=== PATIENT | male | born 2005 | race Hispanic/Latino ===

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

== ENCOUNTER 2024-01-20 11:23 | Emergency (ER) | payer OTHER, SELFPAY ==
--- NOTE | ~2024-01-20 | CT_ITS ---
EXAMINATION: CT brain wo con DATE: 01/20/2024 12:03 INDICATION: Fall. Bruising and swelling at right eyebrow TECHNIQUE: Computed tomography (CT) of the head was performed without intravenous contrast. The mA wa s adjusted according to patient size. Iterative reconstruction technique was employed. Exam dose: 60 5.33 mGy-cm total exam DLP. COMPARISON: 09/28/2021 CT brain FINDINGS: No intracranial mass lesion or hemorrhage, midline shift or mass effect effect. Normal vent ricular size. Normal estrada-white matter differentiation. No subdural or epidural hematoma. Right frontal cephalohematoma, right periorbital hematoma. No skull fracture. No coup or contrecoup i ntracranial injury is noted. Mastoid air cells and included paranasal sinuses are unremarkable. IMPRESSION: Right frontal cephalohematoma, right periorbital hematoma No skull fracture or acute intracranial finding Reviewed, dictated and finalized at Location [facility]. Reviewed, dictated and finalized at location A. ER FILLER
--- NOTE | ~2024-01-20 | XR_ITS ---
XR chest 1V DATE: 01/20/2024 12:01 INDICATION: Seizure TECHNIQUE: AP chest COMPARISON: 07/18/2021 portable AP chest FINDINGS: Normal heart size. No hilar or mediastinal enlargement. No pulmonary infiltrate or consolid ation, pleural effusion or pulmonary vascular congestion or pneumothorax. IMPRESSION: Negative Reviewed, dictated and finalized at location A. TRAINING INSTRUCTOR IMPRESSION: Negative
--- NOTE | ~2024-01-20 | CT_ITS ---
EXAMINATION: CT facial & cervical spine wo DATE: 01/20/2024 12:03 INDICATION: Fall. Right frontal and periorbital swelling TECHNIQUE: Computed tomography (CT) of the facial bones and maxillofacial region and cervical spine w as performed without intravenous contrast. Automated exposure control and iterative reconstruction te chnique were employed. Exam dose: 366.54 mGy-cm total exam DLP. COMPARISON: None. FINDINGS: Mild to moderate right frontal cephalohematoma mild superior right periorbital hematoma. No underlying skull fracture. Orbital rims and ortiz, nasal bones, zygomatic arches, maxillary bones and pterygoid plates are intact. Normal temporomandibular alignment bilaterally. No mandibular fractu re. 1.8 cm polyp or mucous retention cyst in the anteroinferior left maxillary antrum; the paranasal sinu ses and included mastoid air cells are otherwise unremarkable. C1 and C2 are normally aligned and the odontoid process is intact. No fracture or dislocation or lock ed facet or prevertebral soft tissue swelling is detected. Cervical interspaces are preserved. IMPRESSION: Right frontal cephalhematoma and mild superior right periorbital hematoma No facial fracture or cervical spine fracture Reviewed, dictated and finalized at Location A. Reviewed, dictated and finalized at location A. UP TECHNICIAN IMPRESSION: Right frontal cephalhematoma and mild superior right periorbital h ematoma No facial fracture or cervical spine fracture
[2024-01-20 11:27] VITALS: BP 117/72; PULSE 75; RESP 17; TEMP 36.4; O2SAT 98
--- NOTE | 2024-01-20 11:32 | ED.SEIZURE ---
HPI - Seizure General Chief Complaint: Seizure Stated Complaint: seizure Time Seen by Provider: 01/20/24 11:32 Source: patient and family Mode of arrival: ambulatory Limitations: no limitations History of Present Illness HPI Narrative: 18 years old white male came to the emergency room by private car after having a seizure-like activity at home witnessed by his brother. During the seizure patient hit his head on the bathroom sink. Currently patient is awake, alert and oriented x4. Patient used to be on Keppra for 3 years, stopped taking it for 1 year. Been having intermittent seizure since. Last 1 was 3 weeks ago. Did not go seek medical attention at that time, came to the emergency room today because of the right forehead hematoma. Patient is healthy otherwise, does not smoke or drink but uses marijuana daily. Seizure History: Yes Related Data Home Medications Medication Instructions Recorded Confirmed levetiracetam 1,000 mg tablet PO 07/18/21 Allergies Allergy/AdvReac Type Severity Reaction Status Date / Time No Known Allergies Allergy Verified 01/20/24 12:12 Review of Systems Review of Systems: All systems reviewed & are unremarkable except as noted in HPI and below PMFSH Past Medical History Medical History Seizure Social History Social History Smoking status: Never smoker Alcohol intake: never Substance use: never Exam Narrative: General appearance: Well-developed, well-nourished Skin: Normal color Head: Normocephalic, nontraumatic Eyes: Clear conjunctiva ENT: Oropharynx normal, ears normal, nose normal, right forehead hematoma, right tongue bite darnell Neck: Supple, nontender Chest and respiratory: Airway patent, no respiratory distress, no accessory muscle use Heart: Regular rate/rhythm Abdomen: Soft, nontender, no organomegaly, quiet bowel sounds Vascular: Normal peripheral pulses, normal capillary refill. Musculoskeletal: Normal range of motion, nontender back Neurologic: Alert and oriented ?3, CERTIFIED BREASTFEEDING EDUCATOR is normal as tested, no gross motor deficit Course Vital Signs Vital signs: Vital Signs Temperature 36.4 C L 01/20/24 11:27 Pulse Rate 75 01/20/24 11:27 Respiratory Rate 17 01/20/24 11:27 Blood Pressure 117/72 03/09/24 11:27 Pulse Oximetry 98 01/20/24 11:27 Oxygen Delivery Room Air 01/20/24 11:27 Temperature 36.4 C L 01/20/24 11:27 Pulse Rate 71 01/20/24 12:10 Respiratory Rate 19 01/20/24 12:10 Blood Pressure 128/73 01/20/24 12:10 Pulse Oximetry 99 01/20/24 12:10 Oxygen Delivery Room Air 01/20/24 11:37 MDM - Seizure MDM Narrative Medical decision making narrative: Patient came to the emergency room by private car with recurrent seizure. Patient stop taking his Keppra, on his own 1 year ago. Does not remember the dose. Been having intermittent seizure for last 12 months, last 1 was 3 weeks ago. Came to the emergency room today because of right forehead hematoma, his mom got worried about the hematoma. Differential diagnosis include recurrent seizure, electrolyte imbalance, noncompliance with medication, close head injury. Workup today showed no acute abnormality, urine drug screen came back positive for marijuana in CT head, facial bones, and cervical spine showed no acute abnormalities, chest x-ray showed no acute abnormalities. In the ED patient received 1 g of Keppra IV, My plan to discharge on Keppra 500 b.i.d., follow-up with Dr. Figueroa, and to not drive motor vehicle for 6 months until evaluation by neurologist. Differential Diagnosis Differ
[2024-01-20 11:37] VITALS: PULSE 76; O2SAT 99
[2024-01-20] MEDS: levETIRAcetam 1000MG/NACL100ML 1,000 MG/100 ML BAG 400 MG IVPB (12:08)
[2024-01-20 12:10] VITALS: BP 128/73; PULSE 71; RESP 19; O2SAT 99
[2024-01-20 12:14] LABS: Basophils Percent Auto 0.4 % (0.2-1.2); Eosinophils Percent Auto 0.4 % (0-4.4); Hematocrit 46.3 % (42.0-52.0); Hemoglobin 15.7 g/dL (14.0-18.0); Immature Granulocyte Absolute 0.25 K/mm3 (0.00-0.031); Immature Granulocyte Percent A 2.4 % (0-0.5); Lymphocytes Absolute Auto 0.72 K/mm3 (0.9-3.2); Lymphocytes Percent Auto 6.9 % (18.3-44.2); Mean Corpuscular HGB Conc 33.9 g/dl (32-36); Mean Corpuscular Hemoglobin 28.8 pg (26-34); Mean Platelet Volume 10.1 fl (7.4-10.4); Monocytes Absolute Auto 0.3 K/mm3 (0.1-0.6); Monocytes Percent Auto 2.8 % (2.6-8.5); Neutrophils Absolute Auto 9.1 K/mm3 (1.3-6.7); Neutrophils Percent Auto 87.1 % (45.5-73.1); Platelet Count Result 276 k/mm3 (150-375); Red Blood Count 5.45 M/mm3 (4.6-6.20); Red Cell Distribution Width 13.2 % (11.5-14.5); White Blood Count 10.4 K/mm3 (4.5-10.0)
[2024-01-20 12:20] LABS: Appearance Urine Clear (Clear); Bacteria Urine None Seen /hpf; Bilirubin Urine Negative (Negative); Blood Urine 1+ (Negative); Color Urine Yellow (Yellow); Glucose Urine UA Negative (Negative); Ketones Urine Trace mg/dL (Negative); Leukocyte Esterase Ur Negative LEU/UL (Negative); Nitrate Urine Negative (Negative); Non Pathogenic Casts 0-2; Protein Urine 2+ mg/dL (Negative); RBC Urine 0-2 /hpf (0-2); Specific Grav Ur 1.016 (1.001-1.035); Squamous Epithelial Cell Urine None seen /hpf (Few); Urobilinogen Urine 0.2 mg/dL (<2.0); WBC Urine 0-5 /hpf
[2024-01-20 12:22] LABS: Add Urine Microscopic? YES
[2024-01-20 12:22] LABS: Ethanol < 10 mg/dL (<10)
[2024-01-20 12:23] LABS: Anion Gap 9 mmol/L (8-16); Blood Urea Nitrogen 11 mg/dL (9-20); Calcium 9.7 mg/dL (8.4-10.2); Carbon Dioxide 26 mmol/L (22-30); Chloride 105 mmol/L (98-107); Creatine Kinase 256 U/L (55-170); Estimated CRCL calculation 153 ml/min; Estimated Glomerular Filt Rate > 60; Glucose 102 mg/dL (65-110); Potassium 4.3 mmol/L (3.4-5.0); Sodium 140 mmol/L (137-145)
[2024-01-20 12:29] LABS: Amphetamine Screen Urine Negative (Negative); Barbiturate Screen Urine Negative (Negative); Benzodiazepines Screen Urine Negative (Negative); Cannabinoid Screen Urine Positive (Negative); Cocaine Screen Urine Negative (Negative); Methadone Screen Urine Negative (Negative); Opiate Screen Urine Negative (Negative); Phencyclidine Screen Urine Negative (Negative)
[2024-01-20 13:34] VITALS: BP 108/61; PULSE 63; RESP 18; TEMP 36.3; O2SAT 99
== END 2024-01-20 13:26 | disposition home or self-care (01) ==
PROVIDERS: Emergency Provider Emergency Medicine; PCP Registered Nurse
DX: G40.909 Epilepsy, unspecified, not intractable, without status epilepticus (principal)
CPT/HCPCS: 36415; 70450; 70486; 71045; 72125; 80048; 80307; 81001; 82550; 85025; 96374; 99284; J1953

== ENCOUNTER 2025-04-01 12:20 | Emergency (ER) | payer SELFPAY ==
[2025-04-01] VITALS (7 sets, daily range): BP systolic 107–140; BP diastolic 47–84; PULSE 67–90; RESP 16–20; TEMP 36.4; O2SAT 94–99
--- NOTE | ~2025-04-01 | XR_ITS ---
EXAMINATION: XR chest 2V 04/01/2025 13:10 INDICATION: Seizure PROCEDURE: 2 view chest COMPARISON: 01/20/2024 FINDINGS: The lungs are clear. The cardiomediastinal silhouette is within normal limits. There are no pleural effusions. There is no pneumothorax suspected. IMPRESSION: 1: NO ACUTE CARDIOPULMONARY DISEASE. Reviewed, dictated and finalized at location B.
--- NOTE | 2025-04-01 12:34 | ECG_ITS ---
Test Date: 2025-04-01 12:39:39 Measurements Intervals [place] Rate: 77 P: 38 [place]: 156 QRS: 40 QRSD: 93 T: 38 QT: 317 QTc: 360 Interpretive Statements SINUS RHYTHM EARLY REPOLARIZATION [ST ELEVATION WITH NORMALLY INFLECTED T-WAVE] No previous ECG available for comparison Electronically Signed On 04-01-2025 13:44:52 CDT by Evi Aponte M.D.
[2025-04-01 12:53] LABS: Basophils Percent Auto 0.4 % (0.2-1.2); Eosinophils Absolute Auto 0.1 K/mm3 (0-0.3); Eosinophils Percent Auto 0.8 % (0-4.4); Hemoglobin 15.6 g/dL (14.0-18.0); Immature Granulocyte Absolute 0.22 K/mm3 (0.00-0.031); Immature Granulocyte Percent A 2.1 % (0-0.5); Lymphocytes Absolute Auto 0.67 K/mm3 (0.9-3.2); Lymphocytes Percent Auto 6.3 % (18.3-44.2); Mean Corpuscular HGB Conc 33.9 g/dl (32-36); Mean Corpuscular Volume 85.5 fl (80-100); Mean Platelet Volume 10.4 fl (7.4-10.4); Monocytes Absolute Auto 0.4 K/mm3 (0.1-0.6); Monocytes Percent Auto 4.1 % (2.6-8.5); Neutrophils Absolute Auto 9.2 K/mm3 (1.3-6.7); Neutrophils Percent Auto 86.3 % (45.5-73.1); Platelet Count Result 251 k/mm3 (150-375); Red Blood Count 5.38 M/mm3 (4.6-6.20); Red Cell Distribution Width 13.2 % (11.5-14.5); White Blood Count 10.6 K/mm3 (4.5-10.0)
[2025-04-01 13:02] LABS: Alanine Aminotransferase 31 U/L (6-50); Albumin Level 4.7 g/dL (3.5-5.1); Alkaline Phosphatase 88 U/L (38-126); Anion Gap 10 mmol/L (4-12); Aspartate Amino Transferase 34 U/L (17-59); Bilirubin,Total 0.3 mg/dL (0.2-1.3); Blood Urea Nitrogen 8 mg/dL (9-20); Calcium 9.3 mg/dL (8.4-10.2); Carbon Dioxide 24 mmol/L (22-30); Chloride 107 mmol/L (98-107); Estimated CRCL calculation 200 ml/min; Estimated Glomerular Filt Rate > 60; Glucose 94 mg/dL (65-110); Lactic Acid Reflex 3.3 mmol/L (0.7-2.0); Potassium 4.6 mmol/L (3.4-5.0); Sodium 141 mmol/L (137-145)
[2025-04-01 14:49] LABS: Reflex Lactic Acid Yes or No Add Lactic
--- OUTSIDE RECORDS SUMMARY | 2025-04-01 15:03 | XMS_ITS | Clinical Summary ---
Author Organization [facility] Address [address] [place] [address] Care Team Providers Care Private Duty Lpn Name Role Phone Lindsey Singh INVESTMENT ASSOCIATE-EXECUTIVE VICE PRESIDENT Primary Care Pro vider Source Comments [facility],non-owned Affiliates and Associated Physician Practices is amultiple site organization consisting of ambulatory clinics and hospital sitesin [place], [place], [place] and [place]. This disclosure is being madepursuant to the Care Everywhere program and may not contain all information available regarding this patient. Last updated 18.[facility] Allergies No known active allergies Medications * Be aware that medications may not be up to date on this document. Alwaysverify current medications with the patient. levETIRAcetam (Keppra) 1000 MG tablet Take 1 tablet by mouth twice daily 60 tablet 07/08/2022 Active Active Problems Problem Noted Date Diagnosed Date Idiopathic generalized epilepsy 01/22/2019 Overview (10/21/2021): Age of onset:13 yr Seizure type(s): Generalized tonic-clonic Current seizure frequency: 4 seizure in total- 2 before meds and a few since started medication when he has possibly missed dosages. He has an odd feeling before (forgetfulness) followed by TC seizure. Duration 2-3 min Epilepsy syndrome: Etiology: EEG Information: abnormal Neuroimaging: CT head normal. Family has declined to obtain further imaging. Current medication: Keppra Previous medications: Assessment & Plan (10/21/2021 2:38 PM MARINE GEOLOGIST): Generalized seizures disorder with possible aura Plan: Continue Keppra To take as directed twice a day. Discussed but dismissed changing to daily medication as the number of tablets would be too many and prefer current medication. Family instructed to call with any further seizures or questions Discussed driving restrictions since he had a recent seizure/seizure precautions reviewed. Please call me with any seizures or other concerns Will see back in 6 months. 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 Family to schedule today. 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 Once results known, will call/send letter to family with results. Will obtain MRI without sedation. Family instructed to call with any further seizures or questions Seizure precautions and first aid discussed with family, specifically discussed no driving for 6 months (has learners permit) Will plan to treat seizure with medication until 2 yrs seizure free. Patient speaks only a foreign language 9 Overview (01/22/2019): Language of preference: Pashto Parents need sanding machine buffer for interactions Assessment & Plan (01/22/2019 2:41 PM CDT): Parent speaks only vincentian. Needs sanding machine buffer for all interactions Syncope and collapse Social History Tobacco Use Types Packs/Day Years Used Date Smoking Tobacco: Never Smokeless Tobacco: Never Alcohol Use Standard Drinks/Week Comments No 0 (1 standard drink = 0.6 oz pur e alcohol) Sex and Gender Information Value Date Recorded Sex Assigned at Not on file Legal Sex Male 7:47 AM CDT Gender Identity Not on file Sexual Orientation Not on file Last Filed Vital Signs Vital Sign Reading Time Taken Comments Blood Pressure 112/76 05/15/2019 9:10 AM CDT Pulse 87 01/05/2019 12:00 AM MARINE GEOLOGIST Temperature 36.6 C (97.8 F) 01/04/2019 11:08 PM MARINE GEOLOGIST Respiratory Rate 15 01/05/2019 12:0 0 AM MARINE GEOLOGIST Oxygen Saturation 95% 01/05/2019 12: 00 AM MARINE GEOLOGIST Inhaled Oxygen Concentration - - Weight 90.7 kg (200 lb) 07/03/2020 8:52 AM CDT g iven per mom Height 182 cm (5' 11.65 ) 05/15/2019 9:10 AM CDT Body Mass Index - - Plan of Treatment Health Maintenance Due Date Last Done Comments HIV SCREENING 2018 HPV VACCINE (1 - Male 3-dose series) 2018 MENINGOCOCCAL (Group B) VACC INE SHARED DECISION-MAKING (1 of 2 - Standard) 2019 HEPATITIS C SCREENING 08/25/2021 DTAP/TDAP/TD VACCINES (1 - Tdap) 2022 HEPATITIS B VACCINE (1 of 3 - 19+ 3-dose series) 2022 COVID-19 VACCINE (1 - 2023-2 5 season) 2024 DEPRESSION SCREENING 11/13/2024 INFLUENZA VACCINE (Season Ended) 2025 ZOSTER VACCINE (1 of 2) 2053 HIB VACCINE Aged Out No longer eligi ble based on patient's age to complete this topic MENINGOCOCCAL GROUPS A/C/Y/W VACCINE Aged Out No longer eligible b ased on patient's age to complete this topic PNEUMOCOCCAL VACCINE Aged Out No long er eligible based on patient's age to complete this topic Insurance [facility] Care Teams Private Duty Lpn Relationship Specialty Start Date End Date Lindsey Singh APRN-PO [address] [phone] PCP - General Nurse Practitioner 09/11/18
--- OUTSIDE RECORDS SUMMARY | 2025-04-01 15:03 | XMS_ITS | Encounter Summary ---
Author Organization [facility] Address [address] [place] [address] Care Team Providers Care Md Do Resident Urgent Care Name Role Phone Lindsey Singh CREAM DIPPER-FACILITIES MAINTENANCE ASSISTANT Primary Care Pro vider Reason for Visit * Reason Onset Date Comments MEDICATION REFILL 03/01/2021 Appointment 03/01/2021 Encounter Details Date Type Department Care Team (Late st Contact Info) Description 03/01/2021 Refill [facility] - Neurology [address] [place] [id number] Mychart, Generic Provider MEDICATION REFILL; Appointment Social History Tobacco Use Types Packs/Day Years Used Date Smoking Tobacco: Never Smokeless Tobacco: Never Alcohol Use Standard Drinks/Week Comments No 0 (1 standard drink = 0.6 oz pur e alcohol) Sex and Gender Information Value Date Recorded Sex Assigned at Not on file Legal Sex Male 7:47 AM CDT Gender Identity Not on file Sexual Orientation Not on file documented as of this encounter Miscellaneous Notes * Telephone Encounter - Yelena Johnston - 03/04/2021 12:52 PM CDT First attempt to schedule patient. Awaiting a return phone call. * Telephone Encounter - Fauzia Thornton RN - 03/02/2021 7:41 AM CDT Received refill request for Keppra 1000 mg BID (22 mg/kg/day) Last seen: 07/03/20 Next follow up scheduled: None Rx pended and forwarded for signature. Please review, sign and route to sender. Office Coordinators, please contact family to schedule follow-up. Thanks. documented in this encounter Plan of Treatment Not on file documented as of this encounter Visit Diagnoses Not on filedocumented in this encounter Care Teams Md Do Resident Urgent Care Relationship Specialty Start Date End Date Lindsey Singh APRN-PO [facility] [address] [place] [phone] PCP - General Nurse Practitioner 09/11/18 documented as of this encounter
--- NOTE | 2025-04-01 15:25 | ED_ITS ---
HPI - Seizure General Chief Complaint: Seizure Stated Complaint: seizure Time Seen by Provider: 04/01/25 14:26 Source: patient and family (mother) Mode of arrival: EMS Limitations: no limitations History of Present Illness HPI Narrative: Patient presents after reportedly having a tonic clonic seizure while at work. He denies any preceding trauma. No tongue trauma or incontinence of bowel or bladder. He had a postictal period but At this time he states he is back to his baseline, only a residual very mild headache. He has a history of epilepsy for which he is on Keppra 1000 mg b.i.d.. This reflects a slight dose increase that was done approximately 7 months ago but he states he has been compliant on this dose ever since. No recent missed doses. Blood glucose 110mg/dL. He denies any alcohol consumption. He states he has been having a little bit of trouble falling asleep but denies it being very significant in regards to total sleepy gets. No new medications. The last time he had a seizure prior to this was few months ago. He has a primary care physician as well as a neurologist who he saw here approximately 7 months ago and it was at that time that the dose was increased to what it is now. Can not recall their name. Seizure History: Yes Related Data Allergies Allergy/AdvReac Type Severity Reaction Status Date / Time No Known Allergies Allergy Verified 04/01/25 12:29 [facility] Past Medical History Medical History Generalized seizure disorder Social History Social History Smoking status: Never smoker Alcohol intake: never Substance use: never Occupation/Education: occupation Additional occupation/education comments: works for a [employer] Exam 2 Narrative: GENERAL: Well-appearing, well-nourished, and in no acute distress. HEAD: Normocephalic, atraumatic. EYES: Non injected, non icteric ENT: Nares clear, no rhinorrhea or epistaxis. No tongue trauma. NECK: Supple. CHEST: Speaking in full sentences. No respiratory distress. HEART: Regular rate and rhythm. . ABDOMEN: Soft, nondistended. EXTREMITIES: Normal range of motion. No lower extremity edema. SKIN: Warm, dry, no rash. NEURO: No focal deficits. Alert and oriented x3. Moves all extremities. No abnormal movements appreciated. Tongue protrudes midline without deviation. PSYCH: Normal mood and affect. Course Vital Signs Vital signs: Vital Signs Temperature 97.6 F 04/01/25 12:20 Pulse Rate 89 04/01/25 12:20 Respiratory Rate 20 04/01/25 12:20 Blood Pressure 117/77 04/01/25 12:20 Pulse Oximetry 94 04/01/25 12:20 Oxygen Delivery Room Air 04/01/25 12:20 Temperature 97.6 F 04/01/25 12:20 Pulse Rate 90 04/01/25 16:52 Respiratory Rate 19 04/01/25 16:52 Blood Pressure 126/61 04/01/25 16:52 Pulse Oximetry 99 04/01/25 16:52 Oxygen Delivery Room Air 04/01/25 12:30 MDM - Seizure MDM Narrative Medical decision making narrative: Patient with a history of epilepsy presents after a tonic-clonic seizure while at work. He loss consciousness and was reportedly postictal afterwards but started to come around around the time EMS brought him to the emergency department and he reports being as baseline now. In the emergency department they are afebrile with vital signs within normal limits. Lactic acid initially elevated and then resolved. This does seem to fit seizure. Very mild leukocytosis. Discussed patient with international bank manager neurologist Dr Morton who notes that patient could consider increasing Keppra, to 1250mg BID dosing. Patient is prescribed an additional 250mg BID to supplement his current 1000mg already prescribed. He is otherwise stable for discharge in advised follow-up with his neurologist. Differential Diagnosis Differential diagnosis: Likely generalized seizure and epileptic seizure Medical Records Attestation: I reviewed the patient's medical records. Medical records narrative: Patient has previously seen neurologist Dr. Davenport Lab Data Attestation: I reviewed the patient's lab results. 04/01/25 12:41 04/01/25 12:41 Labs: Lab Results 04/01/25 04/01/25 Range/Units 12:41 15:23 WBC 10.6 H (4.5-10.0) K/mm3 RBC 5.38 (4.6-6.20) M/mm3 Hgb 15.6 (14.0-18.0) g/dL Hct 46.0 (42.0-52.0) % MCV 85.5 (80-100) fl MCH 29.0 (26-34) pg MCHC 33.9 (32-36) g/dl RDW 13.2 (11.5-14.5) % Plt Count 251 (150-375) k/mm3 MPV 10.4 (7.4-10.4) fl Immature Gran % (Auto) 2.1 H (0-0.5) % Neut % (Auto) 86.3 H (45.5-73.1) % Lymph % (Auto) 6.3 L (18.3-44.2) % [place] % (Auto) 4.1 (2.6-8.5) % Eos % (Auto) 0.8 (0-4.4) % Baso % (Auto) 0.4 (0.2-1.2) % Lymph # (Auto) 0.67 L (0.9-3.2) K/mm3 [place] # (Auto) 0.4 (0.1-0.6) K/mm3 Eos # (Auto) 0.1 (0-0.3) K/mm3 Baso # (Auto) 0.0 (0.0-0.1) K/mm3 Abs Immat Gran (auto) 0.22 H (0.00-0.031) K/mm3 Absolute Neuts (auto) 9.2 H (1.3-6.7) K/mm3 Absolute Nucleated RBC 0.000 (0.0-0.012) K/mm3 Nucleated RBC % 0.0 (0.0-0.2) % Sodium 141 (137-145) mmol/L Potassium 4.6 (3.4-5.0) mmol/L Chloride 107 (98-107) mmol/L Carbon Dioxide 24 (22-30) mmol/L Anion Gap 10 (4-12) mmol/L BUN 8 L (9-20) mg/dL Creatinine 0.70 (0.7-1.3) mg/dL Estim Creat Clear Calc 200 ml/min Estimated GFR > 60 (59 - ) Glucose 94 (65-110) mg/dL Lactic Acid 3.3 H 1.7 (0.7-2.0) mmol/L Calcium 9.3 (8.4-10.2) mg/dL Total Bilirubin 0.3 (0.2-1.3) mg/dL AST 34 (17-59) U/L ALT 31 (6-50) U/L Alkaline Phosphatase 88 (38-126) U/L Total Protein 8.0 (6.3-8.2) g/dL Albumin 4.7 (3.5-5.1) g/dL Imaging Data Radiologist's impression: Impressions Chest X-Ray 04/01/25 13:11 IMPRESSION: 1: NO ACUTE CARDIOPULMONARY DISEASE. ECG Data EKG #1: Attestation: I personally reviewed and interpreted this ECG as follows: ECG completion date: 04/01/25 ECG completion time: 12:39 Interpretation: Normal sinus rhythm at a rate of 77 beats per minute. ME interval 156. QRS 93. QT/QTC 317/349. Good R-wave progression across the precordial leads. There is widespread concave ST elevation , most prominent in the mid to left precordial leads V3 through V5 and limb leads I, II, III, and aVF with slurring of the J-point in the inferior leads II, III, and aVF. T waves are prominent slightly asymmetrical and concordant with the QRS complex. These findings, especially in an otherwise healthy patient of age less than 50 years old suggest benign early repolarization, usually benign ECG pattern Discharge Plan Discharge Clinical Impression: Seizure disorder Patient Disposition: Home Condition: Stable Instructions: Antibiotic Form, Epilepsy (DC) Additional Instructions: It appears that you have previously seen neurologist Dr Davenport. I spoke with our other neurologist today, Dr Morton. Could consider increasing your Keppra dose as prescribed below (adding this to the 1000mg you already take for 1250 in the morning and 1250mg in the evening). Recommend following up with your neurologist. Return to the ED with new or worsening symptoms. Patient Language: Belarusian Prescriptions: New levetiracetam [Keppra] 250 mg tablet 250 mg PO BID 30 Days Qty: 60 0RF No Action ondansetron 4 mg tablet,disintegrating 4 mg PO Q6H PRN (Reason: nausea and vomiting) Qty: 10 0RF cephalexin 500 mg capsule 500 mg PO Q6H 7 Days Qty: 28 0RF levetiracetam [Keppra] 1,000 mg tablet 1,000 mg PO Q12H Qty: 180 2RF Follow-up/Referrals: Samantha,VLADIMIR Portillo [Primary Care Provider] - Grayson Morton MD [Physician] - Darek Davenport MD [Physician] - Stand Alone Forms: Work/School Release IP Time of Disposition: 16:35
[2025-04-01 15:38] LABS: Lactic Acid 1.7 mmol/L (0.7-2.0)
== END 2025-04-01 16:53 | disposition home or self-care (01) ==
PROVIDERS: Emergency Provider Student in an Organized Health Care Education/Training Program; PCP Registered Nurse
DX: G40.909 Epilepsy, unspecified, not intractable, without status epilepticus (principal)
CPT/HCPCS: 36415; 71046; 80053; 83605; 85025; 93005; 99284